=== PATIENT | female | born 1975 | race Hispanic/Latino ===

== ENCOUNTER 2018-12-05 16:01 | Emergency (ER) | payer SELFPAY | END 2018-12-05 16:39 | disposition home or self-care (01) | LOC: EDH 16:01 | DX: S93.601A Unspecified sprain of right foot, initial encounter (principal); S93.501A Unspecified sprain of right great toe, initial encounter; Z98.890 Other specified postprocedural states; X58.XXXA Exposure to other specified factors, initial encounter; Y93.01 Activity, walking, marching and hiking; Y92.89 Other specified places as the place of occurrence of the external cause; Y99.8 Other external cause status | CPT/HCPCS: 73630 ==